=== PATIENT | male | born 1950 | race Caucasian/White ===

== ENCOUNTER 2023-03-04 13:00 | Emergency (ER) | payer MEDICARE, BC, SELFPAY ==
[2023-03-04 13:08] VITALS: BP 164/96; PULSE 85; RESP 18; TEMP 36.1; O2SAT 94; BMI 31.3
--- NOTE | 2023-03-04 13:38 | ED_ITS ---
HPI - General Adult General Chief complaint: Head Injury/Pain Stated complaint: Kicked in the head by a cow Time Seen by Provider: 03/04/23 13:14 Source: patient and family Mode of arrival: ambulatory Limitations: no limitations History of Present Illness HPI narrative: 73-year-old male presents to the emergency department epi suffered a laceration to his left eyebrow. 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 There was no loss of consciousness. He did initially have slight blurry vision but this improved within just a couple of minutes. The hoof simply grazed the eyelid, it did not knock the patient down or off balance in any way. Patient admits that the inju ry was very minor. He did not require any immediate assistance. Bleeding has been noted from the laceration but has slowed. Lots of swelling noted. He does take low-dose aspirin daily but I am not certain for what indication nor is he. He does not take any stronger blood thinners legs Xarelto, Eliquis, Plavix or others. He has no history of significant eye or vascular problems. No prior stroke or major head injuries. No neurological changes, is present and agrees that he is at his neurological baseline. Able to ambulate, answer questions with no difficulty. He does not know when his last tetanus shot was, does not believe that is been within even a few years. [facility] injury was about an hour ago. He can now see normally out of both eyes. There is no headache. No foreign body sensation in the eye. Since the injury, there has been no vomiting, no dizziness, no neurological changes. He was checked out briefly by a animal laboratory technician who was also helping out that day, was recommended to be evaluated and get his tetanus updated but no severe concerns at the scene. Past medical history he states is benign, denies any major long-term health problems besides Parkinson's disease. He reports that his only home medications are Sinemet and baby aspirin. He denies any recent surgeries. Socially, he is a nonsmoker. ROS is negative for other neurological, generalized, HEENT, vision, musculoskeletal or skin issues. Related Data Allergies Allergy/AdvReac Type Severity Reaction Status Date / Time No Known Drug Allergies Allergy Verified 03/04/23 13:08 Exam Const: Vital Signs, click to edit/add: Vital Signs - 24 hr 03/04/23 13:08 Temperature 97.0 F L Pulse Rate [Right Pulse Oximeter] 85 Respiratory Rate 18 Blood Pressure [Ri ght Upper Arm] 164/96 H Pulse Oximetry 94 Oxygen Delivery Me thod Room Air Documenting provider has reviewed patient's vital signs: yes Common normals: no apparent distress and alert General appearance: cooperative, comfortable and well kempt Orientation/consciousness: Yes awake Other: Good historian, answers questions appropriately. HENMT: Other: Head without any deformity, normal scalp. TMs normal bilaterally with no signs of bleeding. Nose with no drainage or deformity. Oropharynx with dentures in place but with normal oral cavity, no signs of tongue biting or dental injury. Facial bones intact with no point bony tenderness or deformity. Jaw opens and closes normally. Area in question along the left eyelid as below. Eye: Other: Extraocular movements are intact pupils are equal round and reactive to light. Grossly normal visual acuity. 2 cm laceration on left upper eyelid with swelling and bruising present. Can open and close the eyelid with out any sign of deficit. Blood has crusted over the laceration. Lateral superficial laceration continues beyond the open area by about 1 cm by but is epidermal only. The 2 cm laceration is down to the level of the dermis but not to the muscular layers. It is quite superficial. Moderate soil and barnyard debris noted in left eye, this is copiously irrigated to remove with no further signs of foreign body or injury to the cornea. Neck & C-Spine: Common normals: full ROM Cervical spine: cervical ROM normal; no cervical spine tenderness Resp: Common normals: normal respiratory effort Effort & inspection: able to speak in complete sentences Cardio: Common normals: regular rate, regular rhythm and peripheral pulses 2+ throughout Rate: regular rate Rhythm: regular rhythm Peripheral pulses: pulses 2+ throughout Neuro: [place] Coma Scale: document GCS findings [place] coma scale eye opening: Spontaneous (4) [place] coma scale verbal response: Orientated (5) [place] coma scale motor response: Obey commands (6) [place] coma scale total score: 15 Sensorium/orientation: awake and alert Cranial nerves: CN normal except as noted Speech: speech normal Motor exam: strength 5/5 throughout and no movement abnormalities noted Psych: Common normals: mental status grossly normal and speech normal Appearance: well kempt Attitude: engaged Activity/motor behavior: appropriate eye contact Speech: normal speech Attention/concentration: attention grossly intact Memory/cognition: memory grossly intact Insight: insight good Judgement: judgment good Skin: Narrative: Other than the laceration as above, no other areas of injury appreciated Course Vital Signs Vital signs: Initial Vital Signs Temperature 97.0 F L 03/04/23 13:08 Temperature Source Temporal Artery Scan 03/04/23 13:08 Pulse Rate 85 03/04/23 13:08 Respiratory Rate 18 03/04/23 13:08 Blood Pressure 164/96 H 03/04/23 13:08 Blood Pressure Mean 118 03/04/23 13:08 Blood Pressure Position Sitting 03/04/23 13:08 Pulse Oximetry 94 03/04/23 13:08 Oxygen Delivery Method Room Air 03/04/23 13:08 Vital Signs Temperature 97.0 F L 03/04/23 13:08 Pulse Rate 85 03/04/23 13:08 Respiratory Rate 18 03/04/23 13:08 Blood Pressure 164/96 H 03/04/23 13:08 Pulse Oximetry 94 03/04/23 13:08 Oxygen Delivery Method Room Air 03/04/23 13:08 Temperature 97.0 F L 03/04/23 13:08 Pulse Rate 85 03/04/23 13:08 Respiratory Rate 18 03/04/23 13:08 Blood Pressure 164/96 H 03/04/23 13:08 Pulse Oximetry 94 03/04/23 13:08 Oxygen Delivery Method Room Air 03/04/23 13:08 Medical Decision Making MDM Narrative Medical decision making narrative: Left eye is irrigated with no further signs of foreign body or injury to the cornea. Grossly Normal visual acuity. Likely to have additional swelling and bruising to the eyelid. Recommended Steri-Strips to the laceration as it will continue to be under increasing back pressure from the swelling. Area was cleansed with alcohol wipe, Mastisol applied and single Steri-Strips used to close the 2 cm laceration with good hemostasis and anatomic closure, well tolerated. Wound care is discussed, all questions answered. Discussed my rationale and reasoning for not performing head CT, patient and significant other are in agreement. Reviewed signs and symptoms of head injury which are unlikely. Reviewed signs and symptoms of retinal detachment or other ocular injury which can manifest later in the course of healing. Reviewed what to do if these do occur, they verbalized understanding and agreement. Tdap is given prior to discharge. Discharge Plan Discharge Clinical Impression: Mild closed head injury, Eyelid laceration, left Patient Disposition: Home w/ Parent or Adult Condition: Improved Instructions: Head Injury (ED), Steristrips (ED) Additional Instructions: There are no signs of any major head injury or facial fracture that would change our management today. I do not recommend CT scan or blood work. It is okay to use Tylenol or ibuprofen for mild headache or discomfort. The eyelid is going to stay swollen. Resting today and applying ice as needed will help reduce complications. There are no major signs of any damage to the eye itself but unfortunately these can take several more hours to show. If you start having black spots or loss of vision in the left eye, you need to be seen in an emergency department that has access to an overnight eye doctor like a major trauma center. The likelihood of this is incredibly small. I did rinse the eye out well and did remove some debris. There are no signs of any scratches or abrasions on the eyeball itself. You do not need antibiotic drops. The laceration on the eyelid is minor, this was closed with some glue and Steri- Strips. This triple fall off on its own in a few days. If the edges are peeling and the strip is hanging, it is okay to remove it the rest of the way. You do not need to apply any antibiotic ointment or other treatment to this. You may shower as usual in a couple of hours once the glue has fully set. Try not to scrub aggressively over the strip for a few days. Discussed, there is a small chance of a concussion as well. Acceptable symptoms would be mild fatigue, slight lightheadedness and sensitivity to light with headache. Unexpected symptoms that would warrant further investigation would be vomiting, loss of consciousness, seizure, severe loss of balance or other really strange neurological changes. If any of those occur, please come back to the ED right away. Your tetanus shot was updated today and does not need to be updated again for 10 years. You may continue to take all of your medications as normal including your aspirin. Activity Level: Activity as Tolerated Discharge Diet: Regular Follow Up/Referrals: Pancho Sorensen MD [Primary Care Provider] - Stand Alone Forms: [facility] Info Instructions
[2023-03-04] MEDS: TETANUS/DIPHTH/PERTUSSIS 0.5 ML SYRINGE IM (13:44)
== END 2023-03-04 13:53 | disposition home or self-care (01) ==
LOC: ED 13:49
PROVIDERS: Emergency Provider Family Medicine; PCP Family Medicine
DX: S01.112A Laceration without foreign body of left eyelid and periocular area, initial encounter (principal); W55.22XA Struck by cow, initial encounter
CPT/HCPCS: 12001; 90471; 90715; 99283